=== PATIENT | male | born 1965 | race Hispanic/Latino ===

== ENCOUNTER 2018-08-03 13:22 | Emergency (ER) | payer SELFPAY ==
[2018-08-03] MEDS ORDERED: KETOROLAC TROMETHAMINE 60 MG/2 ML VIAL ONE (14:39)
[2018-08-03] MEDS ORDERED: DIAZEPAM 5 MG TABLET ONE (14:40)
[2018-08-03] MEDS ORDERED: LIDOCAINE 5% TOPICAL PATCH TP ONE (14:40)
== END 2018-08-03 16:00 | disposition home or self-care (01) ==
LOC: EDH 13:22
DX: S39.012A Strain of muscle, fascia and tendon of lower back, initial encounter (principal); S43.401A Unspecified sprain of right shoulder joint, initial encounter; S80.01XA Contusion of right knee, initial encounter; S50.01XA Contusion of right elbow, initial encounter; S90.01XA Contusion of right ankle, initial encounter; Z88.0 Allergy status to penicillin; Z72.0 Tobacco use; W01.0XXA Fall on same level from slipping, tripping and stumbling without subsequent striking against object, initial encounter; Y93.01 Activity, walking, marching and hiking; Y92.89 Other specified places as the place of occurrence of the external cause; Y99.8 Other external cause status
CPT/HCPCS: 96372; 99283; J1885

== ENCOUNTER 2019-07-08 05:22 | Inpatient (IN) | payer OTHER ==
[~2019-07-08] VITALS: Ht 167.6 cm; Wt 102.5 kg
[2019-07-08] MEDS ORDERED: ASPIRIN 325 MG TABLET ONE (06:24)
[2019-07-08] MEDS ORDERED: ENOXAPARIN SODIUM 100 MG/1 ML SQ ONE (06:24)
[2019-07-08 06:26] LABS: AMPHET/METH SCREEN,URINE NEGATIVE (NEGATIVE); BARBITURATE SCREEN, URINE NEGATIVE (NEGATIVE); BENZODIAZEPINES SCREEN,URINE NEGATIVE (NEGATIVE); CANNABINOID SCREEN,URINE NEGATIVE (NEGATIVE); COCAINE SCREEN,URINE POSITIVE (NEGATIVE); OPIATE SCREEN,URINE NEGATIVE (NEGATIVE); PHENCYCLIDINE SCREEN,URINE NEGATIVE (NEGATIVE)
[2019-07-08] MEDS ORDERED: ONDANSETRON HCL 4 MG/2 ML VIAL ONE (06:35)
[2019-07-08] MEDS ORDERED: LORAZEPAM 2 MG/ML 1 ML VIAL ONE (06:36)
[2019-07-08] MEDS ORDERED: MORPHINE SULFATE 4 MG/1ML SYG ONE (06:36)
[2019-07-08] MEDS ORDERED: NITROGLYCERIN 1GM/1 INCH PACKET TD ONE (06:54)
[2019-07-08] MEDS ORDERED: NITROGLYCERIN 0.4 MG SL TAB SL ONE (06:55)
[2019-07-08] MEDS: ASPIRIN 81 MG EC TAB PO SCH (09:00)
[2019-07-08] MEDS: ENOXAPARIN SODIUM 40 MG/0.4 ML SYRINGE SQ SCH (09:00)
[2019-07-08 10:28] LABS: CHOLESTEROL 197 mg/dL (<200); LDL DIRECT 129 mg/dL (0-99); TRIGLYCERIDES 204 mg/dL (30-200)
[2019-07-08] MEDS ORDERED: METOPROLOL TARTRATE 25 MG TAB ONE (10:30)
[2019-07-08 10:43] LABS: HDL CHOLESTEROL 33 mg/dL (29-71)
[2019-07-08 10:45] LABS: HEMOGLOBIN A1C 5.8 % (4.0-6.0)
[2019-07-08] MEDS ORDERED: ALBUMIN (HUMAN) 25% 50 ML IV ONE (13:51)
[2019-07-08] MEDS ORDERED: HEPARIN SODIUM 1000UNIT/ML 10ML VIAL IV ONE (13:51)
[2019-07-08] MEDS ORDERED: PHENYLEPHRINE HCL 10 MG/ML 1ML VIAL IV ONE (13:51)
[2019-07-08] MEDS ORDERED: CALCIUM CHLORIDE 100 MG/ML 10 ML SYG IVP ONE (13:51)
[2019-07-08] MEDS ORDERED: MAGNESIUM SULFATE 1 GM/2 ML VIAL IM ONE (13:51)
[2019-07-08] MEDS ORDERED: SODIUM BICARB 8.4% 50ML SYRINGE IVP ONE (13:51)
[2019-07-08] MEDS ORDERED: AMINOCAPROIC ACID 250 MG/ML 20 ML VIAL IV ONE (13:51)
[2019-07-08] MEDS ORDERED: LIDOCAINE PF 2% 5ML ABBOJECT IVP ONE (13:51)
[2019-07-08] MEDS ORDERED: MANNITOL 25% 50ML VIAL IV ONE (13:51)
[2019-07-08] MEDS ORDERED: ATORVASTATIN CALCIUM 40 MG TABLET ONE (20:07)
[2019-07-08 23:45] VITALS: BP 147/86
[2019-07-09 04:06] VITALS: BP 134/77
[2019-07-09 04:52] LABS: HEMATOCRIT 47.1 % (42-54); MEAN CORPUSCULAR HEMOGLOBIN 30.8 pg (27.0-33.0); MEAN CORPUSCULAR HGB CONC 34.4 g/dL (32.0-36.0); MEAN CORPUSCULAR VOLUME 89.3 fL (79-99); NUCLEATED RED BLOOD CELLS 0.1 % (0.0-0.19); PLATELET COUNT (AUTO) 193 K/uL (130-400); RED BLOOD CELL COUNT(AUTO) 5.28 MIL/uL (4.50-6.20); RED CELL DISTRIBUTION WIDTH 13.6 % (11.0-15.5); WHITE BLOOD COUNT (AUTO) 7.9 K/uL (4.8-10.8)
[2019-07-09 05:11] LABS: ALBUMIN 3.2 g/dL (3.5-5.0); BILIRUBIN,TOTAL 0.4 mg/dL (0.2-1.0); CREATININE 1.1 mg/dL (0.5-1.5); POTASSIUM 3.8 mmol/L (3.5-5.1); TOTAL PROTEIN, SERUM 6.5 g/dL (6.0-8.3)
[2019-07-09 07:00] VITALS: BP 131/79
[2019-07-09] MEDS ORDERED: REGADENOSON 0.4 MG/5 ML PF SYG IVP SCH (07:15)
[2019-07-09] MEDS ORDERED: TOPROL 25 MG PO SCH (09:00)
[2019-07-09] MEDS: ASPIRIN 81 MG EC TAB PO SCH (09:00)
[2019-07-09 11:00] VITALS: BP 127/80
--- NOTE | 2019-07-09 13:37 | NUR ---
DC PLAN PER PATIENT IS INDEPENDENT, LIVES WITH AND [place], NO PROVIDER, NO MEDICAL EQUIPMENT AND FEELS SAFE TO RETURN HOME WHEN READY. Addendum: 07/09/19 at 1338 by SKYLAR WHATLEY Amended: Links added.
[2019-07-09 15:00] VITALS: BP 132/82
[2019-07-09] MEDS: IBUPROFEN 200 MG TAB PO PRN (18:38)
[2019-07-09] MEDS: ENOXAPARIN SODIUM 40 MG/0.4 ML SYRINGE SQ SCH (18:39)
[2019-07-09 19:21] VITALS: BP 136/73
[2019-07-09] MEDS: ATORVASTATIN CALCIUM 40 MG TABLET PO SCH (22:08)
[2019-07-09] MEDS: METOPROLOL TARTRATE 25 MG TAB PO SCH (22:08)
[2019-07-09 23:14] VITALS: BP 124/70
[2019-07-10 03:48] VITALS: BP 112/62
[2019-07-10 07:37] VITALS: BP 128/75
[2019-07-10 08:02] LABS: INR 0.96 (0.85-1.15); PARTIAL THROMBOPLASTIN TIME 31.7 SEC (26.3-35.5); PROTHROMBIN TIME 10.1 SEC (9.6-11.6)
[2019-07-10] MEDS: ENOXAPARIN SODIUM 40 MG/0.4 ML SYRINGE SQ SCH (09:00)
[2019-07-10] MEDS: ASPIRIN 81 MG EC TAB PO SCH (09:04)
[2019-07-10] MEDS: METOPROLOL TARTRATE 25 MG TAB PO SCH ×2 (09:04→20:56)
[2019-07-10] MEDS ORDERED: LIDOCAINE HCL 2% 20ML ONE (10:03)
[2019-07-10] MEDS ORDERED: IOHEXOL 350 MG/ML 100ML INFUS..BTL IV ONE (10:03)
[2019-07-10] MEDS ORDERED: HEPARIN SODIUM 1000UNIT/ML 10ML VIAL ONE (10:03)
[2019-07-10] MEDS ORDERED: IOHEXOL-350 50ML VIAL IV ONE (10:03)
[2019-07-10] MEDS ORDERED: FAMOTIDINE/PF 20 MG/2 ML VIAL IV SCH (11:00)
[2019-07-10 11:25] VITALS: BP 144/86
[2019-07-10] MEDS: PREDNISONE 10 MG TABLET PO SCH ×2 (11:40→20:56)
[2019-07-10] MEDS: DIPHENHYDRAMINE HCL 25 MG CAPSULE PO SCH ×2 (11:40→20:56)
[2019-07-10] MEDS: IBUPROFEN 200 MG TAB PO PRN ×2 (11:57→20:56)
[2019-07-10 14:49] VITALS: BP 114/66
[2019-07-10 19:02] VITALS: BP 111/79
[2019-07-10] MEDS: ATORVASTATIN CALCIUM 40 MG TABLET PO SCH (20:56)
[2019-07-10] MEDS: ZOLPIDEM TARTRATE 5 MG TAB PO PRN (22:44)
[2019-07-11] VITALS (13 sets, daily range): BP systolic 119–139; BP diastolic 71–85
[2019-07-11] MEDS ORDERED: IOHEXOL 350 MG/ML 100ML INFUS..BTL IV ONE ×2 (07:15→07:18)
[2019-07-11] MEDS ORDERED: HEPARIN SODIUM 1000UNIT/ML 10ML VIAL ONE ×2 (07:15→07:18)
[2019-07-11] MEDS ORDERED: IOHEXOL-350 50ML VIAL IV ONE ×2 (07:15→07:18)
[2019-07-11] MEDS ORDERED: LIDOCAINE HCL 2% 20ML ONE ×2 (07:15→07:18)
[2019-07-11] MEDS ORDERED: DiphenhydrAMINE HCL 50 MG/ML VIAL ONE ×2 (07:17→07:35)
[2019-07-11] MEDS ORDERED: HYDROCORTISONE SOD SUCCINATE 100 MG/2 ML VIAL ONE ×2 (07:17→07:35)
[2019-07-11] MEDS ORDERED: FAMOTIDINE/PF 20 MG/2 ML VIAL IV ONE ×2 (07:18→07:36)
[2019-07-11] MEDS ORDERED: NITROGLYCERIN 5 MG/ML 10 ML VIAL IV ONE (07:18)
--- NOTE | 2019-07-11 09:00 | NUR ---
CATH Received from Carole shaw RN at bedside. Awake, alert, and oriented x3. Denies any chest pain or shortness of breath. No hematoma noted to right groin site. Instructed to remain bedrest and keep right leg straight for 6 hours, verbalized understanding.
[2019-07-11] MEDS ORDERED: HEPARIN 25000 UNITS/250 ML D5W 250 ML IV PRN (09:15)
[2019-07-11 09:33] LABS: INR 0.98 (0.85-1.15); PARTIAL THROMBOPLASTIN TIME 30.7 SEC (26.3-35.5); PROTHROMBIN TIME 10.3 SEC (9.6-11.6)
[2019-07-11] MEDS ORDERED: HEPARIN SODIUM 5000UNIT/ML 1ML VIAL IV SCH (10:22)
[2019-07-11] MEDS ORDERED: HEPARIN SODIUM 5000UNIT/ML 1ML VIAL ONE (10:26)
--- NOTE | 2019-07-11 10:30 | NUR ---
MD VISIT Dr. Coleman in to see pt, plan of care discussed. New orders received and will carry out. Primary nurse made aware.
[2019-07-11] MEDS: ASPIRIN 81 MG EC TAB PO SCH (10:47)
[2019-07-11] MEDS: METOPROLOL TARTRATE 25 MG TAB PO SCH ×2 (10:48→21:30)
[2019-07-11 13:06] LABS: CHOLESTEROL 185 mg/dL (<200); HDL CHOLESTEROL 36 mg/dL (29-71); HEMOGLOBIN A1C 5.6 % (4.0-6.0); LDL DIRECT 135 mg/dL (0-99); TRIGLYCERIDES 101 mg/dL (30-200)
--- NOTE | 2019-07-11 14:00 | NUR ---
EDUCATION Pre-op CABG teaching given, questions answered, education packets provided. Pt states he will make a final decision this afternoon. Pt's father at bedside.
[2019-07-11] MEDS: ATORVASTATIN CALCIUM 40 MG TABLET PO SCH (21:30)
[2019-07-11] MEDS: ZOLPIDEM TARTRATE 5 MG TAB PO PRN (23:02)
[2019-07-12] VITALS (28 sets, daily range): BP systolic 54–185; BP diastolic 40–179
[2019-07-12] MEDS ORDERED: NITROGLYCERIN 0.4 MG SL TAB SL PRN
--- NOTE | 2019-07-12 01:30 | NUR ---
Heparin drip DC'd heparin drip as per MD orders. Patient stable, alert, denies any chest pain, call light within reach. No distress noted.
[2019-07-12 07:10] LABS: CREATININE 1.3 mg/dL (0.5-1.5); POTASSIUM 4.8 mmol/L (3.5-5.1)
[2019-07-12 07:12] LABS: INR 0.99 (0.85-1.15); PARTIAL THROMBOPLASTIN TIME 28.9 SEC (26.3-35.5); PROTHROMBIN TIME 10.4 SEC (9.6-11.6)
[2019-07-12] MEDS: METOPROLOL TARTRATE 25 MG TAB PO SCH (07:28)
--- NOTE | 2019-07-12 07:35 | NUR ---
pt transfered to OR (CABG procedure) via stretcher by SKYLAR Rueda Lopressor given. Pt denies any pain, smiling.
[2019-07-12] MEDS ORDERED: NITROGLYCERIN 50 MG/D5% WATER 1 BOT ONE (07:39)
[2019-07-12] MEDS ORDERED: SODIUM BICARB 50MEQ 50ML VIAL ONE ×2 (07:39→14:19)
[2019-07-12] MEDS ORDERED: PAPAVERINE HCL 30 MG/ML 2ML VIAL ONE (07:41)
[2019-07-12] MEDS ORDERED: SODIUM CHLORIDE 0.9% 1000ML 1,000 ML IV ONE (07:41)
[2019-07-12] MEDS ORDERED: ROCURONIUM 10MG/1ML SYR 10 MG/ML ML ONE ×3 (07:42→14:44)
[2019-07-12 07:46] LABS: HEMATOCRIT 47.4 % (42-54); MEAN CORPUSCULAR HEMOGLOBIN 30.3 pg (27.0-33.0); MEAN CORPUSCULAR HGB CONC 33.7 g/dL (32.0-36.0); MEAN CORPUSCULAR VOLUME 89.8 fL (79-99); PLATELET COUNT (AUTO) 195 K/uL (130-400); RED BLOOD CELL COUNT(AUTO) 5.28 MIL/uL (4.50-6.20); RED CELL DISTRIBUTION WIDTH 14.1 % (11.0-15.5); WHITE BLOOD COUNT (AUTO) 8.7 K/uL (4.8-10.8)
[2019-07-12 07:49] LABS: BASOPHILS % (MANUAL) 3 % (0-2); EOSINOPHILS % (MANUAL) 2 % (1-6); LYMPHOCYTES % (MANUAL) 22 % (22-44); MAN.DIFF COMMENT-IMPRESSION MANUAL DIFFERENTIAL; MONOCYTES % (MANUAL) 9 % (2-9); PLATELET MORPHOLOGY COMMENT ADEQUATE; SEGMENTED NEUTROPHILS % 64 % (40-70)
--- NOTE | 2019-07-12 07:50 | NUR ---
potential for infection: wiped from neck to feet with klever: 2% chlorhexidine gluconate cloth patients pre-op skin prep per mehreen gonzalez.
[2019-07-12] MEDS: CLINDAMYCIN 900 MG/D5% WATER 50 ML IV SCH ×3 (08:00→20:45)
--- NOTE | 2019-07-12 08:00 | NUR ---
alteration in comfort: applied aromatherapy lavender patch to rights side upper gown for anxiety.
[2019-07-12] MEDS: ASPIRIN 81 MG EC TAB PO SCH (09:00)
[2019-07-12] MEDS ORDERED: MIDAZOLAM HCL 1 MG/ML 2ML VIAL ONE (10:00)
[2019-07-12] MEDS ORDERED: HEPARIN SODIUM 1000UNIT/ML 10ML VIAL ONE ×2 (10:09→14:51)
[2019-07-12] MEDS ORDERED: PROTAMINE SULFATE 10 MG/ML 25ML VIAL IV ONE ×3 (10:09→14:51)
[2019-07-12] MEDS ORDERED: LIDOCAINE PF 2% 5ML ABBOJECT ONE (10:09)
[2019-07-12] MEDS ORDERED: AMINOCAPROIC ACID 250 MG/ML 20 ML VIAL IV ONE (10:09)
[2019-07-12] MEDS ORDERED: NOREPINEPHRINE BITARTRATE 1 MG/1 ML ML IV ONE ×3 (10:10→23:17)
[2019-07-12] MEDS ORDERED: FENTANYL CITRATE PF 50 MCG/1 ML 5ML AMP IV ONE (10:10)
[2019-07-12] MEDS ORDERED: PROPOFOL 10 MG/ML 20ML VIAL IV ONE (10:10)
[2019-07-12] MEDS ORDERED: ETOMIDATE 2 MG/ML 10 ML VIAL ONE (10:11)
[2019-07-12 10:41] LABS: ABG BASE EXCESS -0.5 mmol/L (-2.0-3.0); ABG OXYGEN SATURATION 99.4 % (95.0-99.0); ABG PCO2 31 mmHg (35-48)
[2019-07-12] MEDS ORDERED: DELNIDO FORMULA 2 BAG IV ONE (10:43)
[2019-07-12] MEDS ORDERED: EPINEPHRINE 1 MG/ML 30ML VIAL IJ ONE (11:14)
[2019-07-12 11:59] LABS: ABG HCO3 21.8 mmol/L (21.0-28.0); ABG PCO2 38 mmHg (35-48)
[2019-07-12 12:22] LABS: ABG BASE EXCESS -0.5 mmol/L (-2.0-3.0); ABG HCO3 23.4 mmol/L (21.0-28.0); ABG OXYGEN SATURATION 98.8 % (95.0-99.0); ABG PCO2 36 mmHg (35-48)
[2019-07-12 12:39] LABS: ABG BASE EXCESS 1.5 mmol/L (-2.0-3.0); ABG HCO3 25.6 mmol/L (21.0-28.0); ABG OXYGEN SATURATION 98.2 % (95.0-99.0); ABG PCO2 38 mmHg (35-48)
[2019-07-12] MEDS ORDERED: AMIODARONE HCL 50 MG/ML 3 ML VIAL ONE (12:51)
[2019-07-12] MEDS ORDERED: GLYCOPYRROLATE 1 MG/5 ML SYRINGE ONE (12:56)
[2019-07-12 13:06] LABS: ABG HCO3 22.2 mmol/L (21.0-28.0); ABG OXYGEN SATURATION 97.7 % (95.0-99.0); ABG PCO2 40 mmHg (35-48)
[2019-07-12 13:26] LABS: ABG BASE EXCESS -2.7 mmol/L (-2.0-3.0); ABG HCO3 21.6 mmol/L (21.0-28.0); ABG OXYGEN SATURATION 97.2 % (95.0-99.0); ABG PCO2 36 mmHg (35-48)
[2019-07-12] MEDS ORDERED: SODIUM CHLORIDE 0.9% 500ML 500 ML IV SCH (13:28)
[2019-07-12] MEDS ORDERED: SODIUM CHLORIDE 0.9% 1000ML 1,000 ML IV SCH (13:30)
[2019-07-12] MEDS ORDERED: AMINOCAPROIC ACID 15,000 MG in SODIUM CHLORIDE 0.9% 250 ML IV SCH (13:30)
[2019-07-12] MEDS ORDERED: ACETAMINOPHEN 325 MG TAB PO PRN (13:30)
[2019-07-12] MEDS ORDERED: PROPOFOL 1000 MG/100 ML 100 ML IV PRN (13:30)
[2019-07-12] MEDS ORDERED: ACETAMINOPHEN 650 MG SUPPOSITORY RC PRN (13:30)
[2019-07-12] MEDS ORDERED: SODIUM CHLORIDE 0.9% 10 ML VIAL IVP PRN (13:30)
[2019-07-12] MEDS ORDERED: GLUCAGON 1MG KIT 1 MG ML IM PRN (13:30)
[2019-07-12] MEDS ORDERED: DEXTROSE 50%-WATER 50 ML DISP.SYRIN IV PRN (13:30)
[2019-07-12] MEDS ORDERED: INSULIN REGULAR, HUMAN 3ML 100 UNIT in SODIUM CHLORIDE 0.9% 99 ML IV SCH ×2 (13:30)
[2019-07-12] MEDS ORDERED: POTASSIUM PHOS 15 mMOL+NS250ML 250 ML IV PRN (13:30)
[2019-07-12] MEDS ORDERED: NITROGLYCERIN 50 MG/D5% WATER 250 BOT IV SCH (13:30)
[2019-07-12] MEDS ORDERED: EPINEPHRINE 8 MG in DEXTROSE 5%-WATER 250 ML IV PRN (13:30)
[2019-07-12] MEDS ORDERED: MORPHINE SULFATE 4 MG/1ML SYG IV PRN (13:30)
[2019-07-12] MEDS ORDERED: MORPHINE SULFATE 2 MG/ML 1ML SYG IV PRN (13:30)
[2019-07-12] MEDS ORDERED: ALBUMIN (HUMAN) 5% 250 ML IV PRN (13:30)
[2019-07-12] MEDS ORDERED: MAGNESIUM 2GM PREMIX 50ML 50 ML IV PRN (13:30)
[2019-07-12] MEDS ORDERED: SODIUM CHLORIDE 0.9% 250 ML IV PRN (13:30)
[2019-07-12 14:23] LABS: ABG BASE EXCESS 1.8 mmol/L (-2.0-3.0); ABG HCO3 24.8 mmol/L (21.0-28.0); ABG OXYGEN SATURATION 98.8 % (95.0-99.0); ABG PCO2 34 mmHg (35-48)
[2019-07-12] MEDS ORDERED: METOPROLOL TARTRATE 1 MG/ML 5ML VIAL IV ONE (14:51)
[2019-07-12 15:58] LABS: ABG BASE EXCESS 0.9 mmol/L (-2.0-3.0); ABG HCO3 24.2 mmol/L (21.0-28.0); ABG OXYGEN SATURATION 98.8 % (95.0-99.0); ABG PCO2 35 mmHg (35-48)
[2019-07-12 16:57] LABS: ABG BASE EXCESS -2.3 mmol/L (-2.0-3.0); ABG HCO3 22.2 mmol/L (21.0-28.0); ABG OXYGEN SATURATION 97.1 % (95.0-99.0); ABG PCO2 38 mmHg (35-48)
[2019-07-12 17:14] LABS: HEMATOCRIT 45.9 % (42-54); MEAN CORPUSCULAR HEMOGLOBIN 30.1 pg (27.0-33.0); MEAN CORPUSCULAR HGB CONC 33.6 g/dL (32.0-36.0); MEAN CORPUSCULAR VOLUME 89.7 fL (79-99); NUCLEATED RED BLOOD CELLS 0.1 % (0.0-0.19); PLATELET COUNT (AUTO) 161 K/uL (130-400); RED BLOOD CELL COUNT(AUTO) 5.12 MIL/uL (4.50-6.20); RED CELL DISTRIBUTION WIDTH 13.7 % (11.0-15.5); WHITE BLOOD COUNT (AUTO) 24.2 K/uL (4.8-10.8)
[2019-07-12 17:26] LABS: CREATININE 1.4 mg/dL (0.5-1.5); MAGNESIUM 2.3 mg/dL (1.80-2.40); PHOSPHORUS 2.9 mg/dL (2.5-4.9); POTASSIUM 3.6 mmol/L (3.5-5.1)
[2019-07-12] MEDS: SODIUM BICARB 50MEQ 50ML VIAL IV PRN ×3 (17:36→21:08)
[2019-07-12 17:39] LABS: INR 1.15 (0.85-1.15)
[2019-07-12] MEDS: POTASSIUM CHLORIDE 20MEQ/100ML 100 ML IV PRN ×3 (17:53→23:43)
[2019-07-12] MEDS: CALCIUM GLUCONATE 1 GM in SODIUM CHLORIDE 0.9% 50 ML IV PRN (17:53)
[2019-07-12 18:17] LABS: ABG BASE EXCESS 0.1 mmol/L (-2.0-3.0); ABG HCO3 25.5 mmol/L (21.0-28.0); ABG OXYGEN SATURATION 98.1 % (95.0-99.0); ABG PCO2 44 mmHg (35-48)
[2019-07-12] MEDS: FAMOTIDINE/PF 20 MG/2 ML VIAL IV SCH (19:54)
[2019-07-12] MEDS: ATORVASTATIN CALCIUM 40 MG TABLET PO SCH (19:54)
[2019-07-12] MEDS: TRAMADOL HCL 50 MG TABLET PO PRN (19:54)
[2019-07-12] MEDS ORDERED: ALBUMIN (HUMAN) 5% 250 ML IV ONE (20:21)
--- NOTE | 2019-07-12 20:25 | NUR ---
Dr. Coleman at bedside and updated on patient status. Patient is constantly moving and twiching and unable to relax. His blood pressure has been rahat since previous shift. Am able to wean down on Epi and Levo. Dr. Coleman ordered albumin stat, and EKG for a.m. and stated it was OK to extubate patient when parameters met. Chest tubes show minimal output and urine output is moderate.
[2019-07-12] MEDS ORDERED: ALBUMIN (HUMAN) 5% 250 ML IV SCH (20:39)
[2019-07-12] MEDS ORDERED: PHARMACY COMMUNICATION MISC SCH (21:00)
[2019-07-12 21:03] LABS: ABG BASE EXCESS -2.6 mmol/L (-2.0-3.0); ABG HCO3 22.4 mmol/L (21.0-28.0); ABG PCO2 39 mmHg (35-48)
[2019-07-12 21:35] LABS: ABG BASE EXCESS 1.1 mmol/L (-2.0-3.0); ABG HCO3 25.6 mmol/L (21.0-28.0); ABG OXYGEN SATURATION 98.4 % (95.0-99.0); ABG PCO2 40 mmHg (35-48)
[2019-07-12] MEDS: NOREPINEPHRINE 4MG/NS 250ML 250 ML IV PRN (22:26)
[2019-07-12 22:33] LABS: ABG BASE EXCESS 3.3 mmol/L (-2.0-3.0); ABG HCO3 27.6 mmol/L (21.0-28.0); ABG OXYGEN SATURATION 95.5 % (95.0-99.0); ABG PCO2 41 mmHg (35-48)
--- NOTE | 2019-07-12 23:05 | NUR ---
Extubated at 2245 to 40% aerosol mask.
[2019-07-12] MEDS: ACETAMINOPHEN 325 MG TAB PO PRN (23:09)
[2019-07-12 23:41] LABS: ABG BASE EXCESS 2.4 mmol/L (-2.0-3.0); ABG HCO3 26.8 mmol/L (21.0-28.0); ABG PCO2 41 mmHg (35-48)
[2019-07-13] VITALS (59 sets, daily range): BP systolic 80–132; BP diastolic 43–71
[2019-07-13] MEDS: ONDANSETRON HCL 4 MG/2 ML VIAL IV PRN ×2 (00:30→16:09)
[2019-07-13 02:00] LABS: ABG BASE EXCESS 5.9 mmol/L (-2.0-3.0); ABG HCO3 30.9 mmol/L (21.0-28.0); ABG OXYGEN SATURATION 95.2 % (95.0-99.0); ABG PCO2 46 mmHg (35-48)
[2019-07-13] MEDS: CALCIUM GLUCONATE 1 GM in SODIUM CHLORIDE 0.9% 50 ML IV PRN ×3 (02:10→14:35)
[2019-07-13] MEDS: POTASSIUM CHLORIDE 20MEQ/100ML 100 ML IV PRN ×4 (02:13→14:36)
[2019-07-13] MEDS ORDERED: ALBUMIN (HUMAN) 5% 250 ML IV ONE (02:47)
[2019-07-13] MEDS: TRAMADOL HCL 50 MG TABLET PO PRN ×4 (03:12→20:19)
[2019-07-13 03:45] LABS: ABG BASE EXCESS 4.8 mmol/L (-2.0-3.0); ABG HCO3 29.9 mmol/L (21.0-28.0); ABG OXYGEN SATURATION 95.9 % (95.0-99.0); ABG PCO2 46 mmHg (35-48)
[2019-07-13 04:50] LABS: HEMATOCRIT 30.9 % (42-54); MEAN CORPUSCULAR HEMOGLOBIN 27.2 pg (27.0-33.0); MEAN CORPUSCULAR VOLUME 79.8 fL (79-99); PLATELET COUNT (AUTO) 140 K/uL (130-400); RED BLOOD CELL COUNT(AUTO) 3.88 MIL/uL (4.50-6.20); RED CELL DISTRIBUTION WIDTH 13.4 % (11.0-15.5); WHITE BLOOD COUNT (AUTO) 14.1 K/uL (4.8-10.8)
[2019-07-13 05:04] LABS: INR 1.16 (0.85-1.15); PARTIAL THROMBOPLASTIN TIME 27.4 SEC (26.3-35.5); PROTHROMBIN TIME 12.1 SEC (9.6-11.6)
[2019-07-13] MEDS ORDERED: CALCIUM GLUCONATE 1 GM/10 ML VIAL IV ONE (05:10)
[2019-07-13] MEDS: CLINDAMYCIN 900 MG/D5% WATER 50 ML IV SCH ×2 (05:11→13:09)
[2019-07-13 05:12] LABS: CREATININE 1.1 mg/dL (0.5-1.5); MAGNESIUM 2.1 mg/dL (1.80-2.40); PHOSPHORUS 2.1 mg/dL (2.5-4.9)
[2019-07-13] MEDS: FAMOTIDINE/PF 20 MG/2 ML VIAL IV SCH ×2 (07:39→20:19)
[2019-07-13] MEDS: NOREPINEPHRINE 4MG/NS 250ML 250 ML IV PRN (07:40)
[2019-07-13] MEDS: ASPIRIN 325MG EC TAB 325 MG TABLET.DR PO SCH (07:47)
[2019-07-13] MEDS ORDERED: METOCLOPRAMIDE 10 MG/2 ML VIAL IVP SCH (08:00)
[2019-07-13] MEDS: ASPIRIN 81 MG EC TAB PO SCH (08:10)
--- NOTE | 2019-07-13 11:10 | NUR ---
PATIENT MOVED FROM BED TO CHAIR BY RN AND PT. PATIENT TOLERATED WELL.
[2019-07-13] MEDS: ACETAMINOPHEN 325 MG TAB PO PRN (11:17)
--- NOTE | 2019-07-13 12:20 | NUR ---
DR. ANGEL VISITED AND ASSESSED PATIENT. ORDERS GIVEN FOR PAIN MANAGEMENT. SEE CHART.
[2019-07-13 12:56] LABS: ABG BASE EXCESS 0.7 mmol/L (-2.0-3.0); ABG HCO3 25.5 mmol/L (21.0-28.0); ABG OXYGEN SATURATION 95.6 % (95.0-99.0); ABG PCO2 42 mmHg (35-48)
[2019-07-13 13:25] LABS: CREATININE 1.1 mg/dL (0.5-1.5); MAGNESIUM 1.8 mg/dL (1.80-2.40); PHOSPHORUS 3.3 mg/dL (2.5-4.9); POTASSIUM 3.9 mmol/L (3.5-5.1)
[2019-07-13 13:34] LABS: HEMATOCRIT 32.5 % (42-54); MEAN CORPUSCULAR HEMOGLOBIN 31.4 pg (27.0-33.0); MEAN CORPUSCULAR HGB CONC 34.4 g/dL (32.0-36.0); MEAN CORPUSCULAR VOLUME 91.2 fL (79-99); PLATELET COUNT (AUTO) 96 K/uL (130-400); RED BLOOD CELL COUNT(AUTO) 3.56 MIL/uL (4.50-6.20); RED CELL DISTRIBUTION WIDTH 13.8 % (11.0-15.5); WHITE BLOOD COUNT (AUTO) 11.1 K/uL (4.8-10.8)
[2019-07-13] MEDS: KETOROLAC TROMETHAMINE 30MG/ML IV PRN (14:36)
[2019-07-13] MEDS: ATORVASTATIN CALCIUM 40 MG TABLET PO SCH (20:19)
[2019-07-14] VITALS (18 sets, daily range): BP systolic 91–142; BP diastolic 44–77
[2019-07-14] MEDS: TRAMADOL HCL 50 MG TABLET PO PRN ×2 (03:05→21:48)
[2019-07-14 05:15] LABS: HEMATOCRIT 31.7 % (42-54); MEAN CORPUSCULAR HEMOGLOBIN 30.4 pg (27.0-33.0); MEAN CORPUSCULAR HGB CONC 33.3 g/dL (32.0-36.0); MEAN CORPUSCULAR VOLUME 91.2 fL (79-99); NUCLEATED RED BLOOD CELLS 0.1 % (0.0-0.19); PLATELET COUNT (AUTO) 100 K/uL (130-400); RED BLOOD CELL COUNT(AUTO) 3.48 MIL/uL (4.50-6.20); RED CELL DISTRIBUTION WIDTH 13.8 % (11.0-15.5); WHITE BLOOD COUNT (AUTO) 11.1 K/uL (4.8-10.8)
--- NOTE | 2019-07-14 07:11 | NUR ---
Pt. remained stable ,already off Levophed,bedside report given to incoming NOD using SBAR,all questions answered.Pt. encouraged to do Incentive spirometry.
[2019-07-14] MEDS: FAMOTIDINE/PF 20 MG/2 ML VIAL IV SCH ×2 (08:04→21:46)
[2019-07-14] MEDS: ASPIRIN 325MG EC TAB 325 MG TABLET.DR PO SCH (08:05)
[2019-07-14] MEDS: KETOROLAC TROMETHAMINE 30MG/ML IV PRN (08:37)
[2019-07-14] MEDS: FUROSEMIDE 20 MG TABLET PO SCH (16:23)
--- NOTE | 2019-07-14 18:10 | NUR ---
REPORT GIVEN TO CORRIE Sofia RN. INFORMED PATIENT IS DUE TO VOID AND UP IN CHAIR. PATIENT MOVED TO 228 ON O2 WITH TELE PACK. WITH PATIENT. PATIENT IN CHAIR WITH BRAKES LOCKED AND CALL LIGHT IN REACH.
[2019-07-14] MEDS: ATORVASTATIN CALCIUM 40 MG TABLET PO SCH (21:46)
[2019-07-14] MEDS: METOPROLOL TARTRATE 25 MG TAB PO SCH (21:47)
[2019-07-15] VITALS (7 sets, daily range): BP systolic 107–133; BP diastolic 58–77
[2019-07-15 05:05] LABS: HEMATOCRIT 31.1 % (42-54); MEAN CORPUSCULAR HEMOGLOBIN 31.1 pg (27.0-33.0); MEAN CORPUSCULAR HGB CONC 34.1 g/dL (32.0-36.0); MEAN CORPUSCULAR VOLUME 91.2 fL (79-99); NUCLEATED RED BLOOD CELLS 0.1 % (0.0-0.19); PLATELET COUNT (AUTO) 107 K/uL (130-400); RED BLOOD CELL COUNT(AUTO) 3.41 MIL/uL (4.50-6.20); RED CELL DISTRIBUTION WIDTH 13.5 % (11.0-15.5); WHITE BLOOD COUNT (AUTO) 10.3 K/uL (4.8-10.8)
[2019-07-15 05:14] LABS: POTASSIUM 4.6 mmol/L (3.5-5.1)
[2019-07-15] MEDS: FAMOTIDINE/PF 20 MG/2 ML VIAL IV SCH (07:27)
[2019-07-15] MEDS: ASPIRIN 325MG EC TAB 325 MG TABLET.DR PO SCH (07:28)
[2019-07-15] MEDS: FUROSEMIDE 20 MG TABLET PO SCH ×2 (07:28→16:19)
[2019-07-15] MEDS: METOPROLOL TARTRATE 25 MG TAB PO SCH ×2 (07:28→19:24)
[2019-07-15] MEDS: TRAMADOL HCL 50 MG TABLET PO PRN ×2 (07:29→21:39)
[2019-07-15] MEDS: ENOXAPARIN SODIUM 30 MG/0.3 ML SQ SCH (07:29)
--- NOTE | 2019-07-15 08:20 | NUR ---
ASSESSMENT PT IS AAOX3 DENIES CP DENIES SOB DENIES NV NO COMPLAINTS AT THIS TIME. AM MEDS GIVEN. ENCOURAGED COUGH AND DEEP BREATHING WITH HEART PILLOW SPLINTING AND USE OF IS 10XS Q1HR WHILE AWAKE. SITTING UP IN CHAIR EATING BREAKFAST. CALL LIGHT WITHIN REACH.
--- NOTE | 2019-07-15 17:57 | NUR ---
Nutrition Intervention: Nutrition screen based on LOS x 7 days. Pt. S/P CABG(07/12/19). Pt. on Heart Healthy diet with good p.o. intake, as per pt. Pt. requesting gravy on meats due to meats are too dry. Labs reviewed(Alb 3.2, LDL Chol 135, TG 204). LBM: 07/14/19. SR-19, chest incision. Pt. educated on CABG Nutrition Therapy diet and provided with education material. Pt. verbalized understanding. Recommendations: 1) Continue current diet. 2) CABG Nutrition Therapy diet education given to patient. 3) Continue to monitor pt's nutritional status. 4) Consult RD as nutrition concerns arise. Addendum: 07/15/19 at [address] Amended: Links added.
[2019-07-15] MEDS: ATORVASTATIN CALCIUM 40 MG TABLET PO SCH (19:24)
--- NOTE | 2019-07-15 21:00 | NUR ---
PT STATES HE HAS BEEN SEEING DOTS AROUND, VISION ISSUES. NO DISTRESS NOTED. ABLE TO AMBULATE. DOES COMPLAIN OF CHEST INCISION PAIN. TRAMADOL PRN AVAILABLE. CALL LIGHT IN REACH.
[2019-07-16 04:00] VITALS: BP 109/66
[2019-07-16 05:04] LABS: HEMATOCRIT 31.3 % (42-54); MEAN CORPUSCULAR HEMOGLOBIN 30.7 pg (27.0-33.0); MEAN CORPUSCULAR HGB CONC 33.9 g/dL (32.0-36.0); MEAN CORPUSCULAR VOLUME 90.5 fL (79-99); PLATELET COUNT (AUTO) 167 K/uL (130-400); RED BLOOD CELL COUNT(AUTO) 3.46 MIL/uL (4.50-6.20); RED CELL DISTRIBUTION WIDTH 13.8 % (11.0-15.5); WHITE BLOOD COUNT (AUTO) 9.4 K/uL (4.8-10.8)
[2019-07-16 05:14] LABS: CREATININE 0.9 mg/dL (0.5-1.5); POTASSIUM 4.2 mmol/L (3.5-5.1)
[2019-07-16] MEDS: FUROSEMIDE 20 MG TABLET PO SCH ×2 (07:18→16:20)
[2019-07-16] MEDS: ENOXAPARIN SODIUM 30 MG/0.3 ML SQ SCH (07:19)
[2019-07-16] MEDS: METOPROLOL TARTRATE 25 MG TAB PO SCH ×2 (07:19→21:16)
[2019-07-16 07:35] VITALS: BP 115/63
--- NOTE | 2019-07-16 08:00 | NUR ---
ASSESSMENT PT IS AAOX3 DENIES CP DENIES SOB DENIES NV NO COMPLAINTS AT THIS TIME. AM MEDS GIVEN. ENCOURAGED COUGH AND DEEP BREATHING WITH HEART PILLOW SPLINTING AND USE OF IS 10XS Q1HR WHILE AWAKE. SITTING UP IN CHAIR EATING BREAKFAST. AM MEDS GIVEN. CALL LIGHT WITHIN REACH.
[2019-07-16] MEDS ORDERED: ASPIRIN 81MG TAB.CHEW PO SCH (09:00)
--- NOTE | 2019-07-16 09:45 | NUR ---
DR MARIBEL CHAHAL SAW PATIENT ORDERS RECEIVED. PLAN DC HOME TOMORROW.
[2019-07-16 11:34] VITALS: BP 103/62
[2019-07-16] MEDS: TRAMADOL HCL 50 MG TABLET PO PRN ×2 (13:49→21:15)
[2019-07-16 14:55] VITALS: BP 117/68
--- NOTE | 2019-07-16 18:15 | NUR ---
STATUS RESTING IN BED, DENIES PAIN. NO COMPLAINTS. CALL LIGHT WITHIN REACH.
[2019-07-16 19:00] VITALS: BP 118/64
[2019-07-16] MEDS: ATORVASTATIN CALCIUM 40 MG TABLET PO SCH (21:15)
[2019-07-16 23:56] VITALS: BP 105/48
[2019-07-17 04:00] VITALS: BP 106/59
[2019-07-17 07:40] VITALS: BP 100/47
[2019-07-17] MEDS ORDERED: ASPIRIN 325MG EC TAB 325 MG TABLET.DR PO SCH (09:00)
[2019-07-17] MEDS: ENOXAPARIN SODIUM 30 MG/0.3 ML SQ SCH (10:05)
[2019-07-17] MEDS: TRAMADOL HCL 50 MG TABLET PO PRN (10:07)
[2019-07-17] MEDS: METOPROLOL TARTRATE 25 MG TAB PO SCH (10:07)
[2019-07-17] MEDS: FUROSEMIDE 20 MG TABLET PO SCH (10:08)
[2019-07-17 12:07] VITALS: BP 114/74
== END 2019-07-17 17:10 | disposition home or self-care (01) | DRG 234 ==
LOC: EDH 05:22 → OBSVTOIN 05:23 → EDHIP 05:23 → 2AH 22:44 → 2CV 07-12 08:01 → 2CH 07-13 16:26 → 2DH 07-14 18:14
PROVIDERS: ADMIT Family Medicine; ATTEND Family Medicine
PROC: B2111ZZ Fluoroscopy of Multiple Coronary Arteries using Low Osmolar Contrast (ICD-10-PCS; principal; 2019-07-11)
PROC: B2151ZZ Fluoroscopy of Left Heart using Low Osmolar Contrast (ICD-10-PCS; 2019-07-11)
PROC: 4A023N7 Measurement of Cardiac Sampling and Pressure, Left Heart, Percutaneous Approach (ICD-10-PCS; 2019-07-11)
PROC: 021109W Bypass Coronary Artery, Two Arteries from Aorta with Autologous Venous Tissue, Open Approach (ICD-10-PCS; 2019-07-12)
PROC: 06BQ4ZZ Excision of Left Saphenous Vein, Percutaneous Endoscopic Approach (ICD-10-PCS; 2019-07-12)
PROC: 02100Z9 Bypass Coronary Artery, One Artery from Left Internal Mammary, Open Approach (ICD-10-PCS; 2019-07-12 09:57)
DX: I21.4 Non-ST elevation (NSTEMI) myocardial infarction (principal); F14.90 Cocaine use, unspecified, uncomplicated; I10 Essential (primary) hypertension; I25.110 Atherosclerotic heart disease of native coronary artery with unstable angina pectoris; E78.00 Pure hypercholesterolemia, unspecified; E78.5 Hyperlipidemia, unspecified; F17.200 Nicotine dependence, unspecified, uncomplicated; I25.5 Ischemic cardiomyopathy; R09.02 Hypoxemia; R73.9 Hyperglycemia, unspecified; Z79.82 Long term (current) use of aspirin; Z79.899 Other long term (current) drug therapy; Z82.49 Family history of ischemic heart disease and other diseases of the circulatory system; Z91.19 Patient's noncompliance with other medical treatment and regimen; Z90.49 Acquired absence of other specified parts of digestive tract; Z88.0 Allergy status to penicillin; Z91.041 Radiographic dye allergy status
CPT/HCPCS: 36415; 71045; 71046; 76998; 78452; 80048; 80053; 80061; 80305; 82330; 82435; 82550; 82803; 82947; 82948; 83036; 83605; 83735; 83880; 84100; 84132; 84295; 84484; 85018; 85025; 85027; 85610; 85730; 86156; 86850; 86870; 86900; 86901; 86922; 87804; 93005; 93017; 93306; 93458; 93880; 94002; 94010; 94150; 96374; 97039; 99291; A4606; A7048; A9500; C1729; C1757; C1894; G0378; J0171; J0282; J0610; J1200; J1644; J1650; J1720; J1815; J1885; J2001; J2060; J2150; J2250; J2270; J2370; J2405; J2440; J2704; J2720; J2765; J2785; J3010; J3475; J3480; J3490; J7030; J7040; J7120; J7512; P9045; P9047; Q0163; Q9967

== ENCOUNTER 2019-08-04 23:51 | Emergency (ER) | payer OTHER ==
[~2019-08-04 23:51] MED LIST: AEC81 PO; ATOR40TA71 PO; CLOP75TA32 PO; FURO20TA4 PO; METO25TA6 PO
[2019-08-05 00:45] LABS: BASOPHILS % (AUTO) 0.9 % (0.0-5.0); EOSINOPHILS % (AUTO) 9.3 % (0.0-8.0); LYMPHOCYTES % (AUTO) 21.8 % (21.0-51.0); MEAN CORPUSCULAR HEMOGLOBIN 28.8 pg (27.0-33.0); MEAN CORPUSCULAR HGB CONC 33.2 g/dL (32.0-36.0); MEAN CORPUSCULAR VOLUME 86.8 fL (79-99); MONOCYTES % (AUTO) 8.1 % (3.0-13.0); NEUTROPHILS % (AUTO) 59.9 % (40.0-77.0); PLATELET COUNT (AUTO) 382 K/uL (130-400); RED BLOOD CELL COUNT(AUTO) 3.92 MIL/uL (4.50-6.20); RED CELL DISTRIBUTION WIDTH 14.7 % (11.0-15.5); WHITE BLOOD COUNT (AUTO) 7.5 K/uL (4.8-10.8)
[2019-08-05 00:56] LABS: CREATININE 1.1 mg/dL (0.5-1.5); POTASSIUM 3.8 mmol/L (3.5-5.1)
[2019-08-05 01:01] LABS: ALBUMIN 2.7 g/dL (3.5-5.0); BILIRUBIN,TOTAL 0.2 mg/dL (0.2-1.0); TOTAL PROTEIN, SERUM 6.9 g/dL (6.0-8.3)
[2019-08-05 01:02] LABS: PARTIAL THROMBOPLASTIN TIME 29.8 SEC (26.3-35.5); PROTHROMBIN TIME 10.5 SEC (9.6-11.6)
== END 2019-08-05 02:53 | disposition home or self-care (01) ==
LOC: EDH 23:51
DX: S00.512A Abrasion of oral cavity, initial encounter (principal); E78.00 Pure hypercholesterolemia, unspecified; I10 Essential (primary) hypertension; I25.10 Atherosclerotic heart disease of native coronary artery without angina pectoris; Z95.1 Presence of aortocoronary bypass graft; Z90.49 Acquired absence of other specified parts of digestive tract; Z88.0 Allergy status to penicillin; Z91.041 Radiographic dye allergy status; X58.XXXA Exposure to other specified factors, initial encounter; Y93.89 Activity, other specified; Y92.89 Other specified places as the place of occurrence of the external cause; Y99.8 Other external cause status
CPT/HCPCS: 36415; 80053; 85025; 85610; 85730

== ENCOUNTER 2020-05-18 16:34 | Inpatient (IN) | payer OTHER, SELFPAY ==
[~2020-05-18] VITALS: Ht 170.2 cm; Wt 100.7 kg
[2020-05-18] MEDS ORDERED: ASPIRIN 325 MG TABLET ONE (16:58)
[2020-05-18] MEDS ORDERED: ONDANSETRON HCL 4 MG/2 ML VIAL ONE (16:58)
[2020-05-18] MEDS ORDERED: NITROGLYCERIN 0.4 MG SL TAB SL ONE (16:58)
[2020-05-18 17:11] LABS: BASOPHILS % (AUTO) 0.8 % (0.0-5.0); EOSINOPHILS % (AUTO) 7.1 % (0.0-8.0); HEMATOCRIT 47.7 % (42-54); LYMPHOCYTES % (AUTO) 21.8 % (21.0-51.0); MEAN CORPUSCULAR HEMOGLOBIN 28.6 pg (27.0-33.0); MEAN CORPUSCULAR HGB CONC 33.1 g/dL (32.0-36.0); MEAN CORPUSCULAR VOLUME 86.4 fL (79-99); MONOCYTES % (AUTO) 10.9 % (3.0-13.0); PLATELET COUNT (AUTO) 239 K/uL (130-400); RED BLOOD CELL COUNT(AUTO) 5.52 MIL/uL (4.50-6.20); RED CELL DISTRIBUTION WIDTH 13.2 % (11.0-15.5); WHITE BLOOD COUNT (AUTO) 7.7 K/uL (4.8-10.8)
[2020-05-18 17:24] LABS: INR 0.89 (0.85-1.15); PARTIAL THROMBOPLASTIN TIME 29.4 SEC (26.3-35.5); PROTHROMBIN TIME 9.7 SEC (9.6-11.6)
[2020-05-18 17:33] LABS: ALBUMIN 3.6 g/dL (3.5-5.0); BILIRUBIN,TOTAL 0.2 mg/dL (0.2-1.0); CREATININE 1.1 mg/dL (0.5-1.5); POTASSIUM 3.5 mmol/L (3.5-5.1); TOTAL PROTEIN, SERUM 7.1 g/dL (6.0-8.3)
[2020-05-18] MEDS ORDERED: MORPHINE SULFATE 4 MG/1ML SYG ONE ×2 (18:01→19:22)
[2020-05-18] MEDS ORDERED: ONDANSETRON HCL 4 MG/2 ML VIAL IV PRN (18:30)
[2020-05-18] MEDS ORDERED: NITROGLYCERIN 0.4 MG SL TAB SL PRN (18:30)
[2020-05-18] MEDS ORDERED: ACETAMINOPHEN 325 MG TAB PO PRN ×2 (18:30)
[2020-05-18] MEDS ORDERED: SODIUM CHLORIDE 0.9% 10 ML VIAL IVP PRN (19:45)
[2020-05-18] MEDS ORDERED: ENOXAPARIN SODIUM 80 MG/0.8 ML SQ ONE (20:02)
[2020-05-18] MEDS ORDERED: NITROGLYCERIN 50 MG/D5% WATER 1 BOT ONE (20:03)
[2020-05-18] MEDS ORDERED: TICAGRELOR 90 MG TABLET PO SCH (21:45)
[2020-05-18] MEDS ORDERED: ATORVASTATIN CALCIUM 20 MG TABLET PO SCH (22:15)
[2020-05-18] MEDS ORDERED: METOPROLOL TARTRATE 25 MG TAB ONE (23:32)
[2020-05-18] MEDS ORDERED: ATORVASTATIN CALCIUM 40 MG TABLET ONE (23:32)
[2020-05-19] VITALS (15 sets, daily range): BP systolic 107–149; BP diastolic 69–97
[2020-05-19 03:20] LABS: TROPONIN I 11.97 ng/mL (0.00-0.06)
[2020-05-19] MEDS ORDERED: DiphenhydrAMINE HCL 50 MG/ML VIAL IV SCH (07:45)
[2020-05-19] MEDS ORDERED: METHYLPREDNISOLONE SOD SUCC 125MG/2ML VIAL IM SCH (07:45)
[2020-05-19 08:28] LABS: APPEARANCE,URINE Clear (CLEAR); BILIRUBIN,URINE Negative (NEGATIVE); COLOR,URINE Yellow (YELLOW); GLUCOSE, URINE (UA) Negative (NEGATIVE); KETONES,URINE Negative (NEGATIVE); LEUKOCYTE ESTERASE ,URINE Negative (NEGATIVE); NITRATE,URINE Negative (NEGATIVE); OCCULT BLOOD,URINE Negative (NEGATIVE); PH,URINE 5.5 (5.0-8.0); PROTEIN,URINE Negative (NEGATIVE)
[2020-05-19 08:37] LABS: AMPHET/METH SCREEN,URINE NEGATIVE (NEGATIVE); BARBITURATE SCREEN, URINE NEGATIVE (NEGATIVE); BENZODIAZEPINES SCREEN,URINE NEGATIVE (NEGATIVE); CANNABINOID SCREEN,URINE NEGATIVE (NEGATIVE); COCAINE SCREEN,URINE POSITIVE (NEGATIVE); OPIATE SCREEN,URINE POSITIVE (NEGATIVE); PHENCYCLIDINE SCREEN,URINE NEGATIVE (NEGATIVE)
[2020-05-19] MEDS ORDERED: ENOXAPARIN SODIUM 40 MG/0.4 ML SYRINGE SQ SCH (09:00)
[2020-05-19] MEDS ORDERED: ASPIRIN 81MG TAB.CHEW PO SCH ×2 (09:00)
[2020-05-19] MEDS ORDERED: ENOXAPARIN SODIUM 100 MG/1 ML SQ SCH (09:00)
[2020-05-19] MEDS ORDERED: TICAGRELOR 90 MG TABLET PO SCH (09:00)
[2020-05-19 10:14] LABS: TROPONIN I 13.05 ng/mL (0.00-0.06)
[2020-05-19] MEDS: METOPROLOL TARTRATE 25 MG TAB PO SCH ×3 (11:00→20:28)
--- NOTE | 2020-05-19 11:37 | NUR ---
Admission Pt arrived n the unit. VS stable, A/O, denies pain. Belonging at the bedside. Waiting on the Procedure (12pm).
[2020-05-19] MEDS ORDERED: METHYLPREDNISOLONE SOD SUCC 125MG/2ML VIAL IV SCH (11:45)
[2020-05-19] MEDS ORDERED: PHARMACY COMMUNICATION MISC SCH (11:45)
[2020-05-19] MEDS: FAMOTIDINE/PF 20 MG/2 ML VIAL IV SCH (12:00)
[2020-05-19] MEDS ORDERED: SODIUM BICARB 50MEQ 50ML VIAL ONE (13:05)
[2020-05-19] MEDS ORDERED: IOHEXOL 350 MG/ML 100ML INFUS..BTL IV ONE (13:05)
[2020-05-19] MEDS ORDERED: MEPERIDINE-PF 25 MG/ML SYG ONE (13:05)
[2020-05-19] MEDS ORDERED: LIDOCAINE HCL 2% 20ML ONE (13:05)
[2020-05-19] MEDS ORDERED: IOHEXOL-350 50ML VIAL IV ONE ×2 (13:05→15:03)
[2020-05-19] MEDS ORDERED: MIDAZOLAM HCL 1 MG/ML 2ML VIAL ONE (13:05)
[2020-05-19] MEDS ORDERED: NITROGLYCERIN 2 MG/VIAL VIAL IV ONE (13:05)
--- NOTE | 2020-05-19 13:28 | NUR ---
Transfer Pt transferred to mine laborer for a procedure. VS stable, denies pain
[2020-05-19] MEDS ORDERED: HEPARIN SODIUM 1000UNIT/ML 10ML VIAL ONE (14:48)
[2020-05-19] MEDS ORDERED: EPTIFIBATIDE 75MG/100ML BOTTLE 0 ML IV ONE (14:57)
[2020-05-19] MEDS ORDERED: EPTIFIBATIDE 2 MG/ML 10 ML VIAL IVP ONE (14:57)
[2020-05-19] MEDS ORDERED: ASPIRIN 325MG EC TAB 325 MG TABLET.DR PO ONE (15:23)
[2020-05-19] MEDS ORDERED: CLOPIDOGREL BISULFATE 300 MG TAB ONE (15:23)
[2020-05-19] MEDS ORDERED: ACETAMINOPHEN-CODEINE 300/30MG TAB PO PRN ×2 (15:30)
[2020-05-19] MEDS ORDERED: TEMAZEPAM 30 MG CAP PO PRN (15:30)
[2020-05-19] MEDS ORDERED: ONDANSETRON HCL 4 MG/2 ML VIAL IVP PRN (15:30)
[2020-05-19] MEDS ORDERED: FAMOTIDINE/PF 20 MG/2 ML VIAL IV ONE (15:45)
[2020-05-19] MEDS ORDERED: ONDANSETRON HCL 4 MG/2 ML VIAL ONE (15:45)
[2020-05-19] MEDS ORDERED: CLOPIDOGREL BISULFATE 300 MG TAB PO SCH (17:30)
--- NOTE | 2020-05-19 17:31 | NUR ---
AYANNA NOTE/IA UNABLE TO MEET WITH PATIENT IN ROOM. NEXT OF KIN CALLED, AB HIGHTOWER. PER SPOUSE, PATIENT LIVES WITH FATHER, IS INDEPENDENT WITH ADLS, NO USE OF DME OR PROVIDER SERVICES, AND FEELS SAFE FOR PATIENT TO RETURN HOME. Addendum: 05/19/20 at 1733 by GARDENIA SOMERS RN CM Amended: Links added. Addendum: 05/19/20 at 1733 by GARDENIA SOMERS RN CM Amended: Links added.
[2020-05-19] MEDS ORDERED: ATORVASTATIN CALCIUM 40 MG TABLET PO SCH (21:00)
[2020-05-20] VITALS (7 sets, daily range): BP systolic 104–131; BP diastolic 59–71
[2020-05-20 05:17] LABS: HEMATOCRIT 49.3 % (42-54); MEAN CORPUSCULAR HEMOGLOBIN 28.9 pg (27.0-33.0); MEAN CORPUSCULAR HGB CONC 32.9 g/dL (32.0-36.0); RED BLOOD CELL COUNT(AUTO) 5.6 MIL/uL (4.50-6.20); RED CELL DISTRIBUTION WIDTH 13.1 % (11.0-15.5); WHITE BLOOD COUNT (AUTO) 15.1 K/uL (4.8-10.8)
[2020-05-20 05:55] LABS: POTASSIUM 4.5 mmol/L (3.5-5.1)
[2020-05-20] MEDS: FAMOTIDINE/PF 20 MG/2 ML VIAL IV SCH (07:41)
[2020-05-20] MEDS: METOPROLOL TARTRATE 25 MG TAB PO SCH (08:59)
[2020-05-20] MEDS ORDERED: ASPIRIN 81MG TAB.CHEW PO SCH (09:00)
[2020-05-20] MEDS ORDERED: PANTOPRAZOLE SODIUM 40 MG TABLET.DR PO SCH (09:00)
[2020-05-20] MEDS ORDERED: CLOPIDOGREL BISULFATE 75 MG TAB PO SCH (09:00)
--- NOTE | 2020-05-20 09:30 | NUR ---
Oral and written discharge instructions given, verbalizes understanding. SL X2 discontinued, catheters intact, applied pressure to sites, covered with 2x2 gauzes, and secured with tape. Discharged off floor walking, refused wheelchair, steady gait noted, no distress noted.
== END 2020-05-20 09:30 | disposition home or self-care (01) | DRG 247 ==
LOC: EDH 16:34 → EDHIP 16:35 → DAHIP 05-19 12:53
PROVIDERS: ADMIT Family Medicine; ATTEND Family Medicine
PROC: 027034Z Dilation of Coronary Artery, One Artery with Drug-eluting Intraluminal Device, Percutaneous Approach (ICD-10-PCS; principal; 2020-05-19)
PROC: 4A023N7 Measurement of Cardiac Sampling and Pressure, Left Heart, Percutaneous Approach (ICD-10-PCS; 2020-05-19)
PROC: B2111ZZ Fluoroscopy of Multiple Coronary Arteries using Low Osmolar Contrast (ICD-10-PCS; 2020-05-19)
PROC: B2151ZZ Fluoroscopy of Left Heart using Low Osmolar Contrast (ICD-10-PCS; 2020-05-19)
PROC: B2181ZZ Fluoroscopy of Left Internal Mammary Bypass Graft using Low Osmolar Contrast (ICD-10-PCS; 2020-05-19)
PROC: B2131ZZ Fluoroscopy of Multiple Coronary Artery Bypass Grafts using Low Osmolar Contrast (ICD-10-PCS; 2020-05-19)
DX: I21.4 Non-ST elevation (NSTEMI) myocardial infarction (principal); E11.9 Type 2 diabetes mellitus without complications; E78.5 Hyperlipidemia, unspecified; F14.90 Cocaine use, unspecified, uncomplicated; I10 Essential (primary) hypertension; I25.10 Atherosclerotic heart disease of native coronary artery without angina pectoris; Z91.14 Patient's other noncompliance with medication regimen; Z95.1 Presence of aortocoronary bypass graft; Z88.0 Allergy status to penicillin; Z91.041 Radiographic dye allergy status; Z79.899 Other long term (current) drug therapy
CPT/HCPCS: 36415; 71045; 80048; 80053; 80061; 80305; 81003; 82550; 83874; 84484; 85025; 85027; 85610; 85730; 93005; 93459; 99156; 99157; 99291; C1760; C1769; C1887; C1894; C9600; G0378; J1200; J1327; J1644; J1650; J2175; J2250; J2270; J2405; J2930; J3490; Q9967

== ENCOUNTER 2024-08-23 14:26 | Emergency (ER) | payer OTHER, SELFPAY ==
[~2024-08-23] VITALS: Ht 170.2 cm; Wt 98.0 kg
--- NOTE | 2024-08-23 15:04 | ERN ---
ED Note History of Present Illness Stated Complaint: DIZZINESS Chief Complaint: Dizzy/Light Headed Time Seen by MD: 14:35 Dictation: PATIENT IS A 59-YEAR-OLD MALE COMING IN TODAY WITH THE ACUTE ONSET OF VERTIGO AND DIZZINESS WITH NAUSEA VOMITING ONSET 1 HOUR PRIOR TO ARRIVAL. HE STATES HE WAS DRIVING TO AN APPOINTMENT, WHEN THE ONSET OCCURRED. HE DOES DENIES ANY CHEST PAIN BACK PAIN NO SOB. DENIES ANY HEADACHE. NIH IS 0. DENIES ANY HISTORY OF LABYRINTHITIS VERTIGO DIZZINESS ETC. Allergies: Coded Allergies: Iodine and Iodide Containing Produc (Unverified Allergy, Unknown, RASH, 07/10/19) Penicillins (Verified Allergy, Unknown, 07/08/19) Home Meds Active Scripts Ondansetron (Ondansetron Odt) 4 Mg Tab.rapdis, 4 MG PO Q6HPRN PRN for nausea, #16 TAB 0 Refills Prov:ANGELES HUGO BOILER SERVICE TECHNICIAN 08/23/24 Meclizine HCl (Meclizine HCl) 25 Mg Tablet, 25 MG PO TID for vertigo, #30 TAB 0 Refills Prov:ANGELES HUGO BOILER SERVICE TECHNICIAN 08/23/24 Reported Medications Metoprolol Tartrate (Metoprolol Tartrate) 25 Mg Tablet, 25 MG PO BID, TAB 07/19/19 Furosemide (Furosemide) 20 Mg Tablet, 20 MG PO BID, TAB 07/19/19 Aspirin (ASPIRIN 81 MG ECTAB) 81 Mg Ectab, 81 MG PO DAILY, TAB.EC 07/19/19 Clopidogrel Bisulfate (Clopidogrel) 75 Mg Tablet, 75 MG PO DAILY, TAB 07/19/19 Atorvastatin Calcium (Atorvastatin Calcium) 40 Mg Tablet, 40 MG PO HS, TAB 07/19/19 Past Medical History Past Medical History: High Cholesterol, Hypertension Surgical History: CABG RN Note Reviewed/Agreed w/PFSH: Yes Review of System Dictation CONSTITUTIONAL: NEGATIVE EXCEPT FOR HPI HEAD/FACE: NEGATIVE EXCEPT FOR HPI EENT: NEGATIVE EXCEPT FOR HPI RESPIRATORY: NEGATIVE EXCEPT FOR HPI GASTROINTESTINAL/ABDOMINAL: NEGATIVE EXCEPT FOR HPI NAUSEA GENITOURINARY: NEGATIVE EXCEPT FOR HPI MUSCULOSKELETAL: NEGATIVE EXCEPT FOR HPI INTEGUMENTARY: NEGATIVE EXCEPT FOR HPI NEUROLOGICAL/PSYCH: NEGATIVE EXCEPT FOR HPI DIZZINESS AND VERTIGO WORSE WHEN HE TURNS HIS HEAD HEMATOLOGIC/LYMPHATIC: NEGATIVE EXCEPT FOR HPI ALL SYSTEMS NEGATIVE, EXCEPT NOTED ABOVE. 13 POINT REVIEW OF SYSTEMS ASSESSED AND ALL NEGATIVE EXCEPT FOR ABOVE. Initial Vital Sign VS Vital Signs Date Time Temp Pulse Resp B/P (MAP) Pulse Ox O2 Delivery O2 Flow Rate FiO2 08/23/24 14:27 98.1 76 20 177/111 99 Room Air 0 08/23/24 17:43 21 Physical Exam Dictation VITAL SIGNS REVIEWED GENERAL APPEARANCE: ALERT, ORIENTED X 3, MODERATE ACUTE DISTRESS, WELL DEVELOPED, NOURISHED. HEAD AND FACE: NON-TRAUMATIC. EYES: PERRL, PINK CONJUNCTIVAS, EYELID NO TRAUMA, ANTERIOR CHAMBER WITH ARCUS SENILIS. BILATERAL HORIZONTAL NYSTAGMUS GREATER ON THE RIGHT EARS: PINNAS INTACT AND NO SIGNS OF TRAUMA OR ERYTHEMA EAR CANALS CLEAR AND NO DISCHARGE TM NO ERYTHEMA NOSE: NO DISCHARGE, NO BLEEDING. OROPHARYNX: MOUTH NORMAL, TONGUE PINK, PHARYNX CLEAR,NO ERYTHEMA, TONSILS NO EXUDATES, NO ABSCESSES NOTED, MUCOUS MEMBRANE MOIST NECK: SUPPLE, NON-TENDER, NO THYROMEGALY, NO MASSES, NO JVD, NO BRUITS BREAST:DEFERRED CHEST:NO TENDERNESS, NO CREPITUS, NO PARADOXICAL MOVEMENT, NO RETRACTIONS LUNGS:CLEAR, WELL-VENTILATED, SYMMETRIC, NO RALES, NO WHEEZING, NO RHONCHI, NO STRIDOR, GOOD BREATH SOUNDS BILATERALLY HEART: REGULAR RATE, REGULAR RHYTHM, NO MURMUR, NO GALLOPS VASCULAR: NO PERIPHERAL EDEMA, ABDOMEN: SOFT, POSITIVE BOWEL SOUNDS, NONDISTENDED, NO GUARDING, NONTENDER, NO REBOUND, NO MASSES NO HEPATOMEGALY, NO SPLENOMEGALY, NO WAGGONER'S SIGN, NO HERNIAS. RECTAL: DEFERRED GENITAL: DEFERRED NEUROLOGICAL: NORMAL SPEECH, MOTOR FUNCTION INTACT, SENSORY FUNCTION INTACT MUSCULOSKELETAL: NECK NONTENDER, FULL RANGE OF MOTION, BACK NONTENDER, FULL RANGE OF MOTION, EXTREMITIES: NONTENDER, FULL RANGE OF MOTION SKIN: COLOR PINK, DRY, NO TURGOR, NO RASH, NO LACERATIONS, NO ABRASIONS, NO CONTUSIONS. LYMPHATIC: DEFERRED Results (Laboratory/Radiology) Laboratory/Radiology Laboratory Tests Test 08/23/24 14:53 08/23/24 15:15 08/23/24 17:34 White Blood Count 8.3 K/uL (4.8-10.8) Red Blood Count 5.80 MIL/uL (4.50-6.20) Hemoglobin 17.1 g/dL (14.0-18.0) Hematocrit 52.1 % (42-54) Mean Corpuscular Volume 89.8 fL (79-99) Mean Corpuscular Hemoglobin 29.5 pg (27.0-33.0) Mean Corpuscular Hemoglobin Concent 32.8 g/dL (32.0-36.0) Red Cell Distribution Width 13.3 % (11.0-15.5) Platelet Count 240 K/uL (130-400) Mean Platelet Volume 12.0 fL (7.5-10.5) H Immature Granulocyte % (Auto) 0.6 % (0-1) Neutrophils (%) (Auto) 63.9 % (40.0-77.0) Lymphocytes (%) (Auto) 21.1 % (21.0-51.0) Monocytes (%) (Auto) 7.5 % (3.0-13.0) Eosinophils (%) (Auto) 5.6 % (0.0-8.0) Basophils (%) (Auto) 1.3 % (0.0-5.0) Neutrophils # (Auto) 5.3 K/uL (1.8-7.7) Lymphocytes # (Auto) 1.7 K/uL (1.0-4.8) Monocytes # (Auto) 0.6 K/uL (0.1-1.0) Eosinophils # (Auto) 0.46 K/uL (0.00-0.70) Basophils # (Auto) 0.11 K/uL (0.00-0.20) Absolute Immature Granulocyte (auto 0.05 K/uL (0-1) Nucleated Red Blood Cells 0.0 % (0.0-0.19) Sodium Level 143 mmol/L (136-145) Potassium Level 3.9 mmol/L (3.5-5.1) Chloride Level 104 mmol/L (101-111) Carbon Dioxide Level 27 mmol/L (21-32) Blood Urea Nitrogen 19 mg/dL (7-18) H Creatinine 1.1 mg/dL (0.5-1.3) Glomerular Filtration Rate Calc 78 mL/min (>90) Random Glucose 151 mg/dL (70-105) H Total Calcium 9.3 mg/dL (8.5-10.1) Total Creatine Kinase 92 U/L (21-232) # B-Type Natriuretic Peptide 20 pg/mL (0-100) Troponin I < 0.05 ng/mL (0.00-0.05) Urine Color YELLOW (YELLOW) Urine Appearance TURBID (CLEAR) Urine pH 5.5 (5.0-8.0) Urine Specific [place] 1.029 (1.001-1.031) Urine Protein 50 mg/dL (NEGATIVE) H Urine Glucose (UA) 70 mg/dL (NEGATIVE) H Urine Ketones 10 mg/dL (NEGATIVE) H Urine Occult Blood NEGATIVE (NEGATIVE) Urine Nitrate NEGATIVE (NEGATIVE) Urine Bilirubin NEGATIVE mg/dL (NEGATIVE) Urine Urobilinogen 0.2 mg/dL (0.2-1.0) Urine Leukocyte Esterase NEGATIVE Naldo/uL Urine RBC None /HPF (0-1) Urine WBC None /HPF (0-1) Urine Bacteria None /HPF (None Seen) CHEST 1VW REASON: CHEST PAIN COMPARISON: 05/18/2020 FINDINGS: Single view of the chest was obtained. Lungs are clear. Heart size is normal. There is no pulmonary vascular congestion. Mediastinum and bony thorax appear unremarkable.. Spleen sternotomy is again noted. IMPRESSION: 1. No acute process seen in the chest and no interval change. Labs Reviewed?: Yes EKG Comment: EKG SINUS RHYTHM/HEART RATE 83/AXIS NORMAL/LEFT ATRIAL ENLARGEMENT ED Course ED Course Orders Procedure Category Date Status Time Vital Signs Per CPOE 08/23/24 Transmitted Routine 14:33 B-Type Natriuretic LAB 08/23/24 Complete Peptide 14:33 Chest 1vw RAD 08/23/24 Resulted 14:33 12 Lead Ekg Tracing- EKG 08/23/24 Complete Technical 14:33 Oxygen By Nc/Pulse Ox CPOE 08/23/24 Transmitted 14:33 Maintain Iv CPOE 08/23/24 Transmitted 14:33 Iv Insertion CPOE 08/23/24 Transmitted 14:33 Cardiac Monitoring CPOE 08/23/24 Transmitted 14:33 Pulse Oximetry With CPOE 08/23/24 Transmitted Vs And Prn 14:33 Cbc With Differential LAB 08/23/24 Complete 14:33 Activity: Br W/Brp CPOE 08/23/24 Transmitted With Assist 14:33 Creatine Kinase, Total LAB 08/23/24 Complete 14:33 Urinalysis Profile LAB 08/23/24 Complete 14:33 Troponin Poc Order LAB 08/23/24 Complete Only 14:33 Bedside Troponin-I LAB.ER 08/23/24 Complete (Poc) 14:33 Basic Metabolic Panel LAB 08/23/24 Complete 14:33 Methylprednisolone PHA 08/23/24 Complete Succ 125mg (Solu-Medr 15:30 Meclizine Hcl 25 Mg PHA 08/23/24 Complete (Antivert 25 Mg) 15:30 0.9%Nacl 1000ml (Ns PHA 08/23/24 Complete 1000ml) 15:30 Ondansetron 4mg Inj PHA 08/23/24 Complete (Zofran 4mg Inj) 15:30 Current Medications Medications (Trade) Dose Ordered Sig/Kyle Route PRN Reason Start Time Stop Time Status Last Admin Dose Admin Meclizine HCl (ANTIvert 25 mg) 50 mg ONCE ONCE PO 08/23/24 15:30 08/23/24 15:31 DC 08/23/24 18:28 Methylprednisolone Sodium Succinate (Solu-medROL 125MG) 125 mg ONCE ONCE IVP 08/23/24 15:30 08/23/24 15:31 DC 08/23/24 18:07 Ondansetron HCl (zoFRAN 4MG INJ) 4 mg ONCE ONCE IVP 08/23/24 15:30 08/23/24 15:31 DC 08/23/24 18:07 Sodium Chloride 1,000 ml @ 0 mls/hr ONCE ONCE IV 08/23/24 15:30 08/23/24 15:31 DC 08/23/24 18:07 Vital Signs Date Time Temp Pulse Resp B/P (MAP) Pulse Ox O2 Delivery O2 Flow Rate FiO2 08/23/24 19:52 98.4 72 15 156/81 99 Room Air* 0 08/23/24 17:43 98.2 78 18 185/87 98 Room Air* 0 21 08/23/24 14:27 98.1 76 20 177/111 99 Room Air 0 1845, PATIENT STATES HE FEELS MARKEDLY IMPROVED AFTER FLUIDS, SOLU-MEDROL, MECLIZINE AND ZOFRAN. VERTIGO AND DIZZINESS OR VIRTUALLY RESOLVED. PATIENT NO LONGER FEELS NAUSEATED. NIH IS 0 HEART Score Response (Comments) Value EKG: Repolarization changes 1 Age: 45-65yrs (+1) 1 Risk Factors: 1-2 risk factors (+1) 1 Initial Troponin: Normal limit (0) 0 Total 3 Medical Decision Making MDM MDM: DIFFERENTIAL DIAGNOSIS: ACUTE LABYRINTHITIS/VERTIGO/ELECTROLYTE IMBALANCE/DEHYDRATION/ACS/AMI RATIONALE: TESTS CONSIDERED AND ORDERED SECONDARY TO SHARED DECISION MAKING INCLUDE: EKG/LABS PREVIOUS OUTSIDE RECORDS REVIEWED: OLD ER VISITS. REVIEWED RISK OF COMPLICATION AND/OR MORBIDITY OR MORTALITY OF PATIENT MANAGEMENT: NONE MEDICATIONS-PER MEDICATION RECONCILIATION SEE NURSE'S NOTES NEED FOR HOSPITALIZATION: PATIENT DOES NOT MEET CRITERIA FOR HOSPITALIZATION. NO NEED FOR EMERGENCY MAJOR/MINOR SURGERY: NO THERE ARE NO SOCIAL CONCERNS WITH THIS PATIENT. PRESCRIPTION DRUG MANAGEMENT MECLIZINE/ZOFRAN/ PRESCRIPTIONS WILL INCLUDE SYMPTOMATIC CARE PATIENT'S PRIOR EXTERNAL MEDICAL RECORDS FROM OTHER ER VISITS WERE REVIEWED BY ME INDICATED. PRIOR TESTING AND RESULTS FROM PREVIOUS VISITS WERE REVIEWED. PRIOR TESTS WERE TAKEN INTO ACCOUNT WITH MEDICAL DECISION MAKING AND RESOURCE U TILIZATION, INDEPENDENT HISTORIAN/HISTORIANS WERE USED TO OBTAIN COMPLETE MEDICAL HISTORY. I INDEPENDENTLY INTERPRETED THE TEST THAT WERE PERFORMED, RESULTS WERE REVIEWED BY ME AND CONSIDERED FINDINGS ON RADIOLOGY IF ORDERED. MEDICAL MANAGEMENT AND EXAMINATION INTERPRETATION DISCUSSIONS WERE HAD BY ME WITH OTHER QUALIFIED HEALTHCARE PROFESSIONALS INDICATED FOR THE PATIENT'S CA RE. DX & DISP Disposition: Discharge Departure Impression: Primary Impression: Benign positional vertigo Additional Impressions: Acute labyrinthitis, Uncontrolled diabetes mellitus, Dehydration Condition: Stable Scripts Ondansetron (Ondansetron Odt) 4 Mg Tab.rapdis 4 MG PO Q6HPRN PRN for nausea, #16 TAB 0 Refills Prov: ANGELES HUGO BOILER SERVICE TECHNICIAN 08/23/24 Meclizine HCl (Meclizine HCl) 25 Mg Tablet 25 MG PO TID for vertigo, #30 TAB 0 Refills Prov: ANGELES HUGO BOILER SERVICE TECHNICIAN 08/23/24 Additional Instructions: FOLLOW-UP WITH PRIMARY CARE PROVIDER IN 1 TO 2 DAYS. TAKE MEDICATIONS DIRECTED HERE IN THE EMERGENCY ROOM. OKAY TO CONTINUE HOME MEDICATIONS UNLESS OTHERWISE DISCUSSED DURING YOUR VISIT IN THE EMERGENCY ROOM TODAY. RETURN TO YOUR NEAREST EMERGENCY ROOM IF SYMPTOMS WORSEN OR IF THERE IS NO IMPROVEMENT. CALL 911 IF YOU NEED IMMEDIATE ASSISTANCE. TAKE TYLENOL OR MOTRIN [id number] NEEDED AND IF NO CONTRAINDICATIONS ARE PRESENT. INCREASE ORAL HYDRATION. A WOUND CULTURE OR URINE CULTURE WAS ORDERED HERE IN THE EMERGENCY ROOM DEPARTMENT PLEASE FOLLOW-UP WITH PRIMARY CARE PROVIDER AND ADVISE THEM TO GET REPEAT PORTS FROM OUR FACILITY. IF YOU HAD ANY [place] WRAP/SPLINTS THAT WERE APPLIED HERE, PLEASE DO NOT REMOVE THEM UNTIL YOU SEE YOUR PRIMARY CARE OR SPECIALTY. TAKE MECLIZINE EVERY8 HOURS FOR THREE DAYS. FOLLOW UP WITH YOUR PRIMARY CARE DOCTOR FOR REFERRAL TO ENT IN THE NEXT 2-3 DAYS. Referrals: WILLIE FRANKS MD (PCP) Time of Disposition: 18:59 I have reviewed the case, and I agree with, Diagnosis and Plan ANGELES HUGO NP Aug 23, 2024 15:04 JOSE GONSALVES DO Aug 24, 2024 07:37
[2024-08-23 15:07] LABS: BASOPHILS # (AUTO) 0.11 K/uL (0.00-0.20); BASOPHILS % (AUTO) 1.3 % (0.0-5.0); EOSINOPHILS # (AUTO) 0.46 K/uL (0.00-0.70); EOSINOPHILS % (AUTO) 5.6 % (0.0-8.0); HEMATOCRIT 52.1 % (42-54); IMMATURE GRANULOCYTE ABSOLUTE 0.05 K/uL (0-1); LYMPHOCYTES # (AUTO) 1.7 K/uL (1.0-4.8); LYMPHOCYTES % (AUTO) 21.1 % (21.0-51.0); MEAN CORPUSCULAR HEMOGLOBIN 29.5 pg (27.0-33.0); MEAN CORPUSCULAR HGB CONC 32.8 g/dL (32.0-36.0); MEAN CORPUSCULAR VOLUME 89.8 fL (79-99); MONOCYTES # (AUTO) 0.6 K/uL (0.1-1.0); MONOCYTES % (AUTO) 7.5 % (3.0-13.0); NEUTROPHILS # (AUTO) 5.3 K/uL (1.8-7.7); NEUTROPHILS % (AUTO) 63.9 % (40.0-77.0); PLATELET COUNT (AUTO) 240 K/uL (130-400); RED CELL DISTRIBUTION WIDTH 13.3 % (11.0-15.5); WHITE BLOOD COUNT (AUTO) 8.3 K/uL (4.8-10.8)
[2024-08-23 15:26] LABS: CREATININE 1.1 mg/dL (0.5-1.3); POTASSIUM 3.9 mmol/L (3.5-5.1)
--- NOTE | 2024-08-23 15:35 | HMCIMG ---
CHEST 1VW REASON: CHEST PAIN COMPARISON: 05/18/2020 FINDINGS: Single view of the chest was obtained. Lungs are clear. Heart size is normal. There is no pulmonary vascular congestion. Mediastinum and bony thorax appear unremarkable.. Spleen sternotomy is again noted. IMPRESSION: 1. No acute process seen in the chest and no interval change.
[2024-08-23 15:36] LABS: B-TYPE NATRIURETIC PEPTIDE 20 pg/mL (0-100)
--- NOTE | 2024-08-23 17:35 | NUR ---
PT MOVED TO [facility] AT THIS TIME
[2024-08-23] MEDS: ondanSETRON 4MG INJ IVP ONE (18:07)
[2024-08-23] MEDS: Solu-medROL 125MG VIAL IVP ONE (18:07)
[2024-08-23] MEDS: 0.9%NACL 1000ML 1,000 ML IV ONE (18:07)
[2024-08-23] MEDS: mecliZINE HCL 25 MG TABLET PO ONE (18:28)
[2024-08-23 18:29] LABS: APPEARANCE,URINE TURBID (CLEAR); BILIRUBIN,URINE NEGATIVE (NEGATIVE); COLOR,URINE YELLOW (YELLOW); GLUCOSE, URINE (UA) 70 mg/dL (NEGATIVE); KETONES,URINE 10 mg/dL (NEGATIVE); LEUKOCYTE ESTERASE ,URINE NEGATIVE Leu/uL (NEGATIVE); NITRATE,URINE NEGATIVE (NEGATIVE); OCCULT BLOOD,URINE NEGATIVE (NEGATIVE); PH,URINE 5.5 (5.0-8.0); PROTEIN,URINE 50 mg/dL (NEGATIVE); UROBILINOGEN,URINE 0.2 mg/dL (0.2-1.0)
[2024-08-23 18:50] LABS: ADD UA MICROSCOPIC YES
[2024-08-23 18:52] LABS: MUCUS,URINE MANY LPF (None Seen)
[2024-08-23] MEDS ORDERED: ONDA-243 PO (19:01)
[2024-08-23] MEDS ORDERED: MECL-302 PO (19:01)
[2024-08-23 19:52] VITALS: BP 156/81; PULSE 72; RESP 15; TEMP 98.4; O2SAT 99
--- NOTE | 2024-08-24 06:44 | EKG ---
[facility] Test Date: 2024-08-23 Test Time: 14:31:06 Pat Name: CLAUDIA COSME Department: [facility] Room: Gender: M Stick Roller: [id number] : [id number] Requested By: JOSE GONSALVES Order Number: [id number] Reading MD: Corina Fry Measurements Intervals [place] Rate: 83 P: -4 [place]: 180 QRS: 46 QRSD: 88 T: 182 QT: 379 QTc: 447 Interpretive Statements Sinus rhythm Probable left atrial enlargement Abnormal T, consider ischemia, lateral leads Compared to ECG 05/19/2020 05:55:57 T-wave abnormality now present Right-axis deviation no longer present ST (T wave) deviation no longer present Possible ischemia still present Electronically Signed On 08-24-2024 16:20:14 TOOL POLISHER by Corina Fry Please click the below link to view image of tracing.
== END 2024-08-23 19:53 | disposition home or self-care (01) ==
LOC: EDH 14:26
DX: H81.10 Benign paroxysmal vertigo, unspecified ear (principal); H83.09 Labyrinthitis, unspecified ear; E11.65 Type 2 diabetes mellitus with hyperglycemia; E86.0 Dehydration; I10 Essential (primary) hypertension; E78.00 Pure hypercholesterolemia, unspecified; Z79.02 Long term (current) use of antithrombotics/antiplatelets; Z79.82 Long term (current) use of aspirin; Z88.0 Allergy status to penicillin; Z88.8 Allergy status to other drugs, medicaments and biological substances; Z91.041 Radiographic dye allergy status; Z95.1 Presence of aortocoronary bypass graft
CPT/HCPCS: 99285; 96374; 71045; 96361; 96375; 82550; 84484; 80048; 83880; 85025; 81001; 36415; 93005; J7030; J2919; J2405